=== PATIENT | female | born 1965 | race Caucasian/White ===

== ENCOUNTER 2016-10-03 08:55 | Inpatient (IN) | payer BC, OTHER ==
[2016-10-03 11:38] VITALS: BMI 17.9
--- NOTE | 2016-10-03 12:33 | HP ---
CIWA Score - CIWA Score Nausea/Vomitin Muscle Tremors: 5 Anxiety: 4-Mod. Anxious/Guarded Agitation: 1-Slight > Activity Paroxysmal Sweats: 3 Orientation: 0-Oriented Tacttile Disturbances: 2-Mild Itch/Numbness/Burn Auditory Disturbances: 1-Very Mild Visual Disturbances: 0-None Headache: 2-Mild CIWA-Ar Total Score: 23 Admission ROS BHS - HPI Chief Complaint: "I'm tired of going through these periods of feeling sick and tired and miserable." Pt. is here to Detox from Alcohol. Allergies/Adverse Reactions: Allergies Allergy/AdvReac Type Severity Reaction Status Date / Time No Known Allergies Allergy Verified 10/03/16 12:13 History of Present Illness: Pt. is a 50 YO female here to Detox from Alcohol. Pt. has had 1 previous Detox admission at [facility] in past. Pt. has had previous Detox and Rehab admissions at other [facility] and [facility] in the past. Exam Limitations: No Limitations - Ebola screening Have you traveled outside of the country in the last 21 days: No Have you had contact with anyone from an Ebola affected area: No Have you been sick,other than usual withdrawal symptoms: No Do you have a fever: No - Review of Systems Constitutional: Chills, Diaphoresis, Fever, Loss of Appetite, Malaise, Night Sweats, Changes in sleep EENT: reports: Blurred Vision, Tearing, Recent change in vision (Needs Reading glasses.), Dental Problems (Tooth Decay, Chipped tooth.) Respiratory: reports: Cough, SOB with Exertion Cardiac: reports: Other (Blackout - last epsiode approx. 12 months ago, likely due to Withdrawal.) GI: reports: Diarrhea, Nausea, Poor Appetite, Vomiting, Indigestion, Abdominal cramping, Other (Heartburn.) : reports: No Symptoms Reported Musculoskeletal: reports: Back Pain Integumentary: reports: Erythema (Patches noted on bilateral arms, where patient has been scratching due to dry skin.), Pruritus (Dryness on bilateral arms and legs.), Sweating Neuro: reports: Headache, Numbness (Bilateral feet.), Seizure (2 in past, last one approx. 1 year ago, likely due to withdrawal.), Tremors Endocrine: reports: No Symptoms Reported Hematology: reports: Easy Bruising Psychiatric: reports: Judgement Intact, Mood/Affect Appropiate, Orientated x3, Anxious, Depressed (And Anxiety, Takes medication.) Other Systems: Reviewed and Negative Patient History - Patient Medical History Hx Anemia: No Hx Asthma: No Hx Chronic Obstructive Pulmonary Disease (COPD): No Hx Cancer: No Hx Cardiac Disorders: Yes (Mitral valve prolapse.) Hx Congestive Heart Failure: No Hx Hypertension: No Hx Hypercholesterolemia: No Hx Pacemaker: No HX Cerebrovascular Accident: No Hx Seizures: Yes (etoh related last 1 yr ago.) Hx Dementia: No Hx Diabetes: No Hx Gastrointestinal Disorders: Yes (Heartburn.) Hx Liver Disease: Yes (Fatty Liver, diagnosed several years ago.) Hx Genitourinary Disorders: No Hx Sexually Transmitted Disorders: No Hx Renal Disease (ESRD): No Hx Thyroid Disease: No Hx Human Immunodeficiency Virus (HIV): No (last 06/30: NEGATIVE.) Hx Hepatitis C: No Hx Depression: Yes (History of meds., last taken approx. 1 month ago, due to drinking.) Hx Suicide Attempt: No (PATIENT DENIES CURRENT SI / HI.) Hx Bipolar Disorder: No Hx Schizophrenia: No Other Medical History: ANOREXIA / BULEMIA PRIMARILY DURING CHILDHOOD, OCCASIONAL RELAPSES. - Patient Surgical History Past Surgical History: No Hx Neurologic Surgery: No Hx Cataract Extraction: No Hx Cardiac Surgery: No Hx Lung Surgery: No Hx Breast Surgery: No Hx Breast Biopsy: No Hx Abdominal Surgery: No Hx Appendectomy: No Hx Cholecystectomy: No Hx Genitourinary Surgery: No Hx Section: No Hx Orthopedic Surgery: No Anesthesia Reaction: No - PPD History Previous Implant?: Yes Documented Results: Negative w/o proof Implanted On Prior [facility] Admission?: Yes Date: 08/02/14 PPD to be Administered?: Yes - Reproductive History Patient is a Female of Child Bearing Age (11 -55 yrs old): Yes LMP comment: Stopped approx. 3 years ago. Patient : No - Smoking Cessation Smoking history: Never smoked Hx Chewing Tobacco Use: No Initiated information on smoking cessation: No - Substance & Tx. History Hx Alcohol Use: Yes Hx Substance Use: Yes Substance Use Type: Alcohol Hx Substance Use Treatment: Yes (Previous detox and Rehab admissions, 1 at [facility] ; also at other locations.) - Substances Abused Alcohol Route: Oral Frequency: Daily Amount used: 4 - 22 oz beers or a bottle of wine Age of first use: 17 Date of Last Use: 10/01/16 Family Disease History - Family Disease History Family Disease History: CA: Father (Alive.), Mother (Alive, Thyroid Disorder.), Other: Grandparent (alcohol,), Mother Admission Physical Exam [facility] - Vital Signs Vital Signs: Vital Signs - 24 hr 10/03/16 10/03/16 11:20 11:35 Temperature 97.4 F L 99.0 F Pulse Rate 59 L 85 Respiratory 17 18 Rate Blood Pressure 125/73 120/78 - Physical General Appearance: Yes: Appropriately Dressed, Mild Distress, Moderate Distress , Thin, Tremorous, Sweating, Anxious HEENTM: Yes: Hearing grossly Normal, Normocephalic, Normal Voice, JUDI, Pharynx Normal Respiratory: Yes: Chest Non-Tender, Lungs Clear, No Respiratory Distress, No Accessory Muscle Use Neck: Yes: No masses,lesions,Nodules, Supple, Trachea in good position Breast: Yes: Breast Exam Deferred Cardiology: Yes: Regular Rhythm, Regular Rate, S1, S2 Abdominal: Yes: Normal Bowel Sounds, Non Tender, Flat, Soft Genitourinary: Yes: Within Normal Limits Back: Yes: Decreased Range of Motion Musculoskeletal: Yes: Gait Steady, Back pain Extremities: Yes: Tremors Neurological: Yes: Fully Oriented, Alert, Normal Mood/Affect, Normal Response Integumentary: Yes: Normal Color, Dry, Warm, Erythema (Small spots noted on bilateral arms; patient reports that she has been scratching in these areas due to dry skin.) Lymphatic: Yes: Within Normal Limits - Diagnostic (1) Alcohol dependence with uncomplicated withdrawal Current Visit: Yes Status: Acute (2) History of anorexia nervosa Current Visit: Yes Status: Chronic (3) History of bulimia nervosa Current Visit: Yes Status: Chronic (4) History of anxiety Current Visit: Yes Status: Chronic (5) History of depression Current Visit: Yes Status: Chronic (6) Heartburn Current Visit: Yes Status: Chronic (7) Fatty liver Current Visit: Yes Status: Chronic (8) History of mitral valve prolapse Current Visit: Yes Status: Chronic (9) History of seizures Current Visit: Yes Status: Chronic Comment: Due to Alcohol Withdrawal. Cleared for Admission [facility] - Detox or Rehab [facility] Level of Care: Medically Managed Detox Regimen/Protocol: Librium S Breath Alcohol Content Breath Alcohol Content: 0 Urine Pregancy Test - Result Urine Test Results: Negative- NO Line Present Urine Drug Screen - Results Drug Screen Negative: No Urine Drug Screen Results: BZO-Benzodiazepines
[2016-10-03] MEDS ORDERED: chlordiazePOXIDE HCL 25 MG CAPSULE PO PRN (13:11)
[2016-10-03] MEDS ORDERED: P-EPHED 60MG/TRIPROLIDI 2.5MG TABLET PO PRN (13:11)
[2016-10-03] MEDS ORDERED: IBUPROFEN 400 MG TABLET (FP) PO PRN (13:11)
[2016-10-03] MEDS ORDERED: MAG HYDROX/AL HYDROX/SIMETH 30 ML UNIT-DOSE CUP PO PRN (13:11)
[2016-10-03] MEDS ORDERED: ACETAMINOPHEN 325 MG TABLET (FP) PO PRN (13:11)
[2016-10-03] MEDS ORDERED: guaiFENesin/D-METHORPHAN HB 10 ML UNIT-DOSE CUPS PO PRN (13:11)
[2016-10-03] MEDS ORDERED: MAGNESIUM HYDROX 2400MG/30ML ORAL SUSPENSION 30 ML CUP PO PRN (13:11)
[2016-10-03] MEDS ORDERED: MAGNESIUM CITRATE 300 ML BOTTLE PO PRN (13:11)
[2016-10-03] MEDS ORDERED: MENTHOL/PHENOL 1 EACH UD MM PRN (13:11)
[2016-10-03] MEDS ORDERED: diphenhydrAMINE HCL 50 MG CAPSULE PO PRN (13:11)
[2016-10-03] MEDS ORDERED: ONDANSETRON *ODT* 4 MG TABLET SL PRN (13:14)
[2016-10-03] MEDS ORDERED: diphenhydrAMINE HCL 25 MG CAPSULE (FP) PO PRN (13:21)
[2016-10-03] MEDS ORDERED: chlordiazePOXIDE HCL 25 MG CAPSULE PO ONE (13:54)
[2016-10-03] MEDS: AMMONIUM LACTATE 12% LOTION 225 GM BOTTLE TP SCH ×2 (16:02→22:36)
[2016-10-03 17:22] LABS: MCH 23.6 pg (25.7-33.7); MCHC 30.6 g/dl (32.0-36.0); MEAN CELL VOLUME 77.2 fl (80-96); RDW 22.9 % (11.6-15.6); WHITE BLOOD COUNT 3.3 K/mm3 (4.0-10.0)
--- NOTE | 2016-10-03 17:28 | CONSULT ---
[facility] Psychiatric Consult - Data Date of interview: 10/03/16 Admission source: [facility] Identifying data: Readmission to [facility] for this 50 y/o female seeking detox treatment on for alcohol dependence.Patient is single without children,domiciled,unemployed and supported on Disability benefits. Substance Abuse History: Patient admits to abusing alcohol since age 18 ( consumes one bottle of wine + 4 X 22 oz of beer daily).Never smoked.Last ETOH use : 10/02/16. Medical History: GERD and a history of alcohol-related seizures. Psychiatric History: Patient admits to a few psychiatric hospitalizations in the past ([facility]).Diagnosed with MDD.Treated with ECT at [facility] 10 years ago.Co-morbidities : anorexia,bulimia nervosa (no recent relapses).Managed by psychiatrist,Dr Narvaez.Ms Devlin gets OPD services at the [facility] mental health clinic.Maintained on a regimen of zoloft 100 mg/day + remeron 15 mg/hs.Verified by review of recent pharmacy claims.Patient endorses adequate adherence to OPD care.She denies history of suicide attempts. Physical/Sexual Abuse/Trauma History: Patient denies. Additional Comment: Urine Drug Screen Results: BZO-Benzodiazepines as per [facility] report.Noted. Mental Status Exam - Mental Status Exam Alert and Oriented to: Time, Place, Person Cognitive Function: Good Patient Appearance: Well Groomed (short stature,frail habitus,thin) Mood: Nervous, Withdrawn, Apprehensive Affect: Constricted Patient Behavior: Appropriate, Cooperative Speech Pattern: Clear, Appropriate Voice Loudness: Normal Thought Process: Goal Oriented Thought Disorder: Not Present Hallucinations: Denies Suicidal Ideation: Denies Insight/Judgement: Fair Sleep: Poorly, Difficulty falling asleep Appetite: Poor, Weight loss Muscle strength/Tone: Normal Gait/Station: Normal Psychiatric Findings - Problem List (Francisco 1, 2,3) (1) Alcohol dependence with uncomplicated withdrawal Current Visit: Yes Status: Acute (2) Depressive disorder Current Visit: Yes Status: Chronic (3) History of anorexia nervosa Current Visit: Yes Status: Chronic (4) History of bulimia nervosa Current Visit: Yes Status: Chronic (5) History of mitral valve prolapse Current Visit: Yes Status: Chronic (6) History of seizures Current Visit: Yes Status: Chronic Comment: Due to Alcohol Withdrawal. (7) Weight loss Current Visit: Yes Status: Chronic (8) Gastroesophageal reflux disease Current Visit: Yes Status: Chronic (9) Insomnia Current Visit: Yes Status: Acute - Initial Treatment Plan Initial Treatment Plan: Psychoeducation.Detoxification in progress.S report is appreciated.Medications : zoloft 100 mg po daily + remeron 15 mg po hs.Side effects/benegfits discussed with the patient.She is in agreement with this careplan.Observation.NO scripts at discharge : refills available since 09/26/16 at [facility] # [id number] (provider Dr Rajeev Obregon).
[2016-10-03 17:38] LABS: URINE APPEARANCE CLEAR; URINE BILIRUBIN NEGATIVE (NEGATIVE); URINE BLOOD NEGATIVE (NEGATIVE); URINE COLOR LTYELLOW; URINE GLUCOSE (UA) NEGATIVE (NEGATIVE); URINE KETONE NEGATIVE (NEGATIVE); URINE LEUK ESTERASE NEGATIVE (NEGATIVE); URINE NITRITE NEGATIVE (NEGATIVE); URINE PROTEIN NEGATIVE (NEGATIVE); URINE UROBILINOGEN NEGATIVE mg/dL (0.2-1.0)
[2016-10-03 17:51] LABS: ALBUMIN 4.2 g/dl (3.4-5.0); ANION GAP 14 (8-16); CALCIUM 9.4 mg/dL (8.5-10.1); CO2 26 mmol/L (21-32); GLUCOSE,RANDOM 95 mg/dL (74-106); SGOT/AST 74 U/L (15-37); SGPT/ALT 39 U/L (12-78)
[2016-10-03 17:55] LABS: ALK PHOS 216 U/L (45-117); BILIRUBIN,TOTAL 1.9 mg/dL (0.2-1.0); CREATININE 0.5 mg/dL (0.55-1.02); TOT PROT 8.3 g/dl (6.4-8.2)
[2016-10-03] MEDS: chlordiazePOXIDE HCL 25 MG CAPSULE PO SCH ×2 (17:56→22:36)
[2016-10-03 18:19] LABS: MEAN PLT VOLUME 8.6 fl (7.5-11.1); PLATELET COUNT 150 K/MM3 (134-434)
[2016-10-03 18:22] LABS: ANISOCYTOSIS 3+; OVALOCYTES 1+; PLATELET ESTIMATE ADEQUATE (NORMAL); POIKILOCYTOSIS 1+; POLYCHROMASIA 1+
[2016-10-03] MEDS ORDERED: POTASSIUM CHLORIDE TABS 20 MEQ TABLET.ER (FP) PO ONE (21:09)
[2016-10-03] MEDS: LOPERAMIDE HCL 2 MG CAPSULE PO PRN (21:11)
--- NOTE | 2016-10-03 21:14 | PN ---
[facility] Progress Note Note: Laboratory Last Values WBC 3.3 K/mm3 (4.0-10.0) L 10/03/16 14:00 RBC 3.76 M/mm3 (3.60-5.2) 10/03/16 14:00 Hgb 8.9 GM/dL (10.7-15.3) L D 10/03/16 14:00 Hct 29.0 % (32.4-45.2) L 10/03/16 14:00 MCV 77.2 fl (80-96) L 10/03/16 14:00 MCH 23.6 pg (25.7-33.7) L 10/03/16 14:00 MCHC 30.6 g/dl (32.0-36.0) L 10/03/16 14:00 RDW 22.9 % (11.6-15.6) H D 10/03/16 14:00 Plt Count 150 K/MM3 (134-434) 10/03/16 14:00 MPV 8.6 fl (7.5-11.1) 10/03/16 14:00 Platelet Estimate Adequate (NORMAL) 10/03/16 14:00 Platelet Comment Few giant plts 10/03/16 14:00 Polychromasia 1+ 10/03/16 14:00 Poikilocytosis 1+ 10/03/16 14:00 Anisocytosis 3+ 10/03/16 14:00 Macrocytosis 1+ 10/03/16 14:00 Ovalocytes 1+ 10/03/16 14:00 Morphology Comment Slide scanned 10/03/16 14:00 Sodium 130 mmol/L (136-145) L 10/03/16 14:00 Potassium 3.3 mmol/L (3.5-5.1) L 10/03/16 14:00 Chloride 90 mmol/L (98-107) L 10/03/16 14:00 Carbon Dioxide 26 mmol/L (21-32) 10/03/16 14:00 Anion Gap 14 (8-16) 10/03/16 14:00 BUN 2 mg/dL (7-18) L* D 10/03/16 14:00 Creatinine 0.5 mg/dL (0.55-1.02) L 10/03/16 14:00 Creat Clearance w eGFR > 60 (>60) 10/03/16 14:00 Random Glucose 95 mg/dL (74-106) 10/03/16 14:00 Calcium 9.4 mg/dL (8.5-10.1) 10/03/16 14:00 Total Bilirubin 1.9 mg/dL (0.2-1.0) H D 10/03/16 14:00 AST 74 U/L (15-37) H 10/03/16 14:00 ALT 39 U/L (12-78) D 10/03/16 14:00 Alkaline Phosphatase 216 U/L (45-117) H D 10/03/16 14:00 Total Protein 8.3 g/dl (6.4-8.2) H D 10/03/16 14:00 Albumin 4.2 g/dl (3.4-5.0) 10/03/16 14:00 Urine Color Ltyellow 10/03/16 15:00 Urine Appearance Clear 10/03/16 15:00 Urine pH 8.0 (5.0-8.0) D 10/03/16 15:00 Urine Protein Negative (NEGATIVE) 10/03/16 15:00 Urine Glucose (UA) Negative (NEGATIVE) 10/03/16 15:00 Urine Ketones Negative (NEGATIVE) 10/03/16 15:00 Urine Blood Negative (NEGATIVE) 10/03/16 15:00 Urine Nitrite Negative (NEGATIVE) 10/03/16 15:00 Urine Bilirubin Negative (NEGATIVE) 10/03/16 15:00 Urine Urobilinogen Negative mg/dL (0.2-1.0) 10/03/16 15:00 Ur Leukocyte Esterase Negative (NEGATIVE) 10/03/16 15:00 RPR Titer Nonreactive (NONREACTIVE) 10/03/16 14:00 to give k dur 20 meq po now then daily ferrous sulfate 325 mgs po tid repeat cbc,cmp in AM continue detox
[2016-10-03] MEDS: MIRTAZAPINE 15 MG TABLET (FP) PO SCH (22:35)
[2016-10-03] MEDS: THIAMINE HCL 100 MG TABLET (FP) PO SCH (22:35)
[2016-10-04] MEDS: chlordiazePOXIDE HCL 25 MG CAPSULE PO SCH ×4 (05:35→22:39)
[2016-10-04] MEDS: FERROUS SO4 325 MG TABLET (FP) PO SCH ×3 (07:53→17:49)
[2016-10-04] MEDS: SERTRALINE HCL 50 MG TABLET (FP) PO SCH (10:32)
[2016-10-04] MEDS: POTASSIUM CHLORIDE TABS 20 MEQ TABLET.ER (FP) PO SCH (10:32)
[2016-10-04] MEDS: PRENATAL VITAMINS W/ FOLIC ACID TABLET (FP) PO SCH (10:32)
[2016-10-04] MEDS: PANTOPRAZOLE 40 MG TABLET (FP) PO SCH (10:32)
[2016-10-04] MEDS: AMMONIUM LACTATE 12% LOTION 225 GM BOTTLE TP SCH ×2 (10:32→22:39)
--- NOTE | 2016-10-04 12:34 | PN ---
[facility] CIWA - CIWA Score Nausea/Vomitin Muscle Tremors: 3 Anxiety: 3 Agitation: 3 Paroxysmal Sweats: 1-Minimal Palms Moist Orientation: 0-Oriented Tacttile Disturbances: 1-Very Mild Itch/Numbness Auditory Disturbances: 1-Very Mild Visual Disturbances: 1-Very Mild Sensitivity Headache: 2-Mild CIWA-Ar Total Score: 18 S Progress Note (SOAP) Subjective: ALERT,IRRITABLE,ANXIOUS,INTERRUPTED SLEEP,TREOR Objective: 10/04/16 12:32 Vital Signs Temperature 98.2 F 10/04/16 10:00 Pulse Rate 100 H 10/04/16 10:00 Respiratory Rate 20 10/04/16 10:00 Blood Pressure 112/88 10/04/16 10:00 O2 Sat by Pulse Oximetry (%) EKG NSR,PROLONG QT NO CHEST PAIN,NO SOB,NO DIZZINESS Laboratory Last Values WBC 3.3 K/mm3 (4.0-10.0) L 10/03/16 14:00 RBC 3.76 M/mm3 (3.60-5.2) 10/03/16 14:00 Hgb 8.9 GM/dL (10.7-15.3) L D 10/03/16 14:00 Hct 29.0 % (32.4-45.2) L 10/03/16 14:00 MCV 77.2 fl (80-96) L 10/03/16 14:00 MCH 23.6 pg (25.7-33.7) L 10/03/16 14:00 MCHC 30.6 g/dl (32.0-36.0) L 10/03/16 14:00 RDW 22.9 % (11.6-15.6) H D 10/03/16 14:00 Plt Count 150 K/MM3 (134-434) 10/03/16 14:00 MPV 8.6 fl (7.5-11.1) 10/03/16 14:00 Platelet Estimate Adequate (NORMAL) 10/03/16 14:00 Platelet Comment Few giant plts 10/03/16 14:00 Polychromasia 1+ 10/03/16 14:00 Poikilocytosis 1+ 10/03/16 14:00 Anisocytosis 3+ 10/03/16 14:00 Macrocytosis 1+ 10/03/16 14:00 Ovalocytes 1+ 10/03/16 14:00 Morphology Comment Slide scanned 10/03/16 14:00 Sodium 130 mmol/L (136-145) L 10/03/16 14:00 Potassium 3.3 mmol/L (3.5-5.1) L 10/03/16 14:00 Chloride 90 mmol/L (98-107) L 10/03/16 14:00 Carbon Dioxide 26 mmol/L (21-32) 10/03/16 14:00 Anion Gap 14 (8-16) 10/03/16 14:00 BUN 2 mg/dL (7-18) L* D 10/03/16 14:00 Creatinine 0.5 mg/dL (0.55-1.02) L 10/03/16 14:00 Creat Clearance w eGFR > 60 (>60) 10/03/16 14:00 Random Glucose 95 mg/dL (74-106) 10/03/16 14:00 Calcium 9.4 mg/dL (8.5-10.1) 10/03/16 14:00 Total Bilirubin 1.9 mg/dL (0.2-1.0) H D 10/03/16 14:00 AST 74 U/L (15-37) H 10/03/16 14:00 ALT 39 U/L (12-78) D 10/03/16 14:00 Alkaline Phosphatase 216 U/L (45-117) H D 10/03/16 14:00 Total Protein 8.3 g/dl (6.4-8.2) H D 10/03/16 14:00 Albumin 4.2 g/dl (3.4-5.0) 10/03/16 14:00 Urine Color Ltyellow 10/03/16 15:00 Urine Appearance Clear 10/03/16 15:00 Urine pH 8.0 (5.0-8.0) D 10/03/16 15:00 Ur Specific [place] 1.010 (1.005-1.025) 10/03/16 15:00 Urine Protein Negative (NEGATIVE) 10/03/16 15:00 Urine Glucose (UA) Negative (NEGATIVE) 10/03/16 15:00 Urine Ketones Negative (NEGATIVE) 10/03/16 15:00 Urine Blood Negative (NEGATIVE) 10/03/16 15:00 Urine Nitrite Negative (NEGATIVE) 10/03/16 15:00 Urine Bilirubin Negative (NEGATIVE) 10/03/16 15:00 Urine Urobilinogen Negative mg/dL (0.2-1.0) 10/03/16 15:00 Ur Leukocyte Esterase Negative (NEGATIVE) 10/03/16 15:00 RPR Titer Nonreactive (NONREACTIVE) 10/03/16 14:00 Assessment: 10/04/16 12:34 WITHDRAWAL SYMPTOM 10/04/16 12:36 Plan: CONTINUE DETOX,REPEAT CBC,CMP IN AM
[2016-10-04] MEDS: hydrOXYzine PAMOATE 50 MG CAPSULE (FP) PO PRN (15:50)
--- NOTE | 2016-10-04 16:38 | EKG ---
Test Reason : Blood Pressure : / mmHG Vent. Rate : 083 BPM Atrial Rate : 083 BPM P-R Int : 116 ms QRS Dur : 072 ms QT Int : 410 ms P-R-T Axes : 016 054 063 degrees QTc Int : 481 ms NORMAL SINUS RHYTHM PROLONGED QT ABNORMAL ECG NO PREVIOUS ECGS AVAILABLE Confirmed by JIAN HOWARD, DINA ([id number]) on 10/04/2016 4:38:15 PM Referred By: Anuj Stout Confirmed By:DINA VILLAR MD
[2016-10-04] MEDS: MIRTAZAPINE 15 MG TABLET (FP) PO SCH (22:39)
[2016-10-04] MEDS: THIAMINE HCL 100 MG TABLET (FP) PO SCH (22:39)
[2016-10-05] MEDS: chlordiazePOXIDE HCL 25 MG CAPSULE PO SCH ×2 (06:07→10:59)
[2016-10-05] MEDS: FERROUS SO4 325 MG TABLET (FP) PO SCH ×3 (07:57→17:32)
[2016-10-05] MEDS: PRENATAL VITAMINS W/ FOLIC ACID TABLET (FP) PO SCH (10:59)
[2016-10-05] MEDS: PANTOPRAZOLE 40 MG TABLET (FP) PO SCH (10:59)
[2016-10-05] MEDS: SERTRALINE HCL 50 MG TABLET (FP) PO SCH (10:59)
[2016-10-05] MEDS: POTASSIUM CHLORIDE TABS 20 MEQ TABLET.ER (FP) PO SCH (11:00)
[2016-10-05] MEDS: AMMONIUM LACTATE 12% LOTION 225 GM BOTTLE TP SCH ×2 (11:00→22:33)
--- NOTE | 2016-10-05 12:03 | PN ---
[facility] CIWA - CIWA Score Nausea/Vomitin Muscle Tremors: 3 Anxiety: 3 Agitation: 2 Paroxysmal Sweats: 3 Orientation: 0-Oriented Tacttile Disturbances: 2-Mild Itch/Numbness/Burn Auditory Disturbances: 0-None Visual Disturbances: 0-None Headache: 0-None Present CIWA-Ar Total Score: 16 [facility] Progress Note (SOAP) Subjective: shakes, sweats, neuropathy of feet Objective: 10/05/16 12:02 Vital Signs Temperature 97.5 F L 10/05/16 10:00 Pulse Rate 118 H 10/05/16 10:00 Respiratory Rate 18 10/05/16 10:00 Blood Pressure 124/85 10/05/16 10:00 O2 Sat by Pulse Oximetry (%) Laboratory Tests 10/03/16 10/03/16 10/03/16 14:00 14:00 14:00 WBC 3.3 L RBC 3.76 Hgb 8.9 L D Hct 29.0 L MCV 77.2 L MCH 23.6 L MCHC 30.6 L RDW 22.9 H D Plt Count 150 MPV 8.6 Platelet Estimate Adequate Platelet Comment Few giant plts Polychromasia 1+ Poikilocytosis 1+ Anisocytosis 3+ Macrocytosis 1+ Ovalocytes 1+ Morphology Comment Slide scanned Sodium 130 L Potassium 3.3 L Chloride 90 L Carbon Dioxide 26 Anion Gap 14 BUN 2 L* D Creatinine 0.5 L Creat Clearance w eGFR > 60 Random Glucose 95 Calcium 9.4 Total Bilirubin 1.9 H D AST 74 H ALT 39 D Alkaline Phosphatase 216 H D Total Protein 8.3 H D Albumin 4.2 Urine Color Urine Appearance Urine pH Ur Specific [place] Urine Protein Urine Glucose (UA) Urine Ketones Urine Blood Urine Nitrite Urine Bilirubin Urine Urobilinogen Ur Leukocyte Esterase RPR Titer Nonreactive 10/03/16 15:00 WBC RBC Hgb Hct MCV MCH MCHC RDW Plt Count MPV Platelet Estimate Platelet Comment Polychromasia Poikilocytosis Anisocytosis Macrocytosis Ovalocytes Morphology Comment Sodium Potassium Chloride Carbon Dioxide Anion Gap BUN Creatinine Creat Clearance w eGFR Random Glucose Calcium Total Bilirubin AST ALT Alkaline Phosphatase Total Protein Albumin Urine Color Ltyellow Urine Appearance Clear Urine pH 8.0 D Ur Specific [place] 1.010 Urine Protein Negative Urine Glucose (UA) Negative Urine Ketones Negative Urine Blood Negative Urine Nitrite Negative Urine Bilirubin Negative Urine Urobilinogen Negative Ur Leukocyte Esterase Negative RPR Titer pt aox3 in nad ambulating Assessment: 10/05/16 12:02 withdrawal sx's neuropathy anemia Plan: cont. detox increase fluids neurontin 100mg tid
[2016-10-05] MEDS: GABAPENTIN 100 MG CAPSULE (FP) PO SCH ×2 (14:31→22:32)
[2016-10-05] MEDS: chlordiazePOXIDE 5 MG CAPSULE PO SCH ×2 (17:32→22:32)
[2016-10-05] MEDS: MIRTAZAPINE 15 MG TABLET (FP) PO SCH (22:32)
[2016-10-05] MEDS: THIAMINE HCL 100 MG TABLET (FP) PO SCH (22:32)
[2016-10-05] MEDS: LOPERAMIDE HCL 2 MG CAPSULE PO PRN (23:14)
[2016-10-06] MEDS: hydrOXYzine PAMOATE 50 MG CAPSULE (FP) PO PRN (02:22)
[2016-10-06] MEDS: chlordiazePOXIDE 5 MG CAPSULE PO SCH ×2 (05:55→10:54)
[2016-10-06] MEDS: GABAPENTIN 100 MG CAPSULE (FP) PO SCH ×3 (05:56→22:42)
[2016-10-06] MEDS: LOPERAMIDE HCL 2 MG CAPSULE PO PRN (05:56)
[2016-10-06] MEDS: FERROUS SO4 325 MG TABLET (FP) PO SCH ×3 (08:14→17:57)
[2016-10-06] MEDS: POTASSIUM CHLORIDE TABS 20 MEQ TABLET.ER (FP) PO SCH (10:53)
[2016-10-06] MEDS: PANTOPRAZOLE 40 MG TABLET (FP) PO SCH (10:53)
[2016-10-06] MEDS: PRENATAL VITAMINS W/ FOLIC ACID TABLET (FP) PO SCH (10:53)
[2016-10-06] MEDS: SERTRALINE HCL 50 MG TABLET (FP) PO SCH (10:53)
[2016-10-06] MEDS: AMMONIUM LACTATE 12% LOTION 225 GM BOTTLE TP SCH ×2 (10:54→22:43)
--- NOTE | 2016-10-06 15:41 | PN ---
S Progress Note (SOAP) Subjective: alert,irritable,anxious,interrupted sleep, Objective: 10/06/16 15:40 10/06/16 15:40 Vital Signs Temperature 97.2 F L 10/06/16 14:40 Pulse Rate 109 H 10/06/16 14:40 Respiratory Rate 16 10/06/16 14:40 Blood Pressure 119/83 10/06/16 14:40 O2 Sat by Pulse Oximetry (%) Assessment: 10/06/16 15:40 withdrawal symptom Plan: continue detox,discharge in am
[2016-10-06] MEDS ORDERED: chlordiazePOXIDE 5 MG CAPSULE ONE ×2 (17:18→21:56)
[2016-10-06] MEDS: chlordiazePOXIDE HCL 10 MG CAPSULE PO SCH ×2 (17:58→22:43)
[2016-10-06] MEDS: THIAMINE HCL 100 MG TABLET (FP) PO SCH (22:42)
[2016-10-06] MEDS: MIRTAZAPINE 15 MG TABLET (FP) PO SCH (22:42)
[2016-10-07] MEDS ORDERED: chlordiazePOXIDE 5 MG CAPSULE ONE ×2 (04:45→09:15)
[2016-10-07] MEDS: chlordiazePOXIDE HCL 10 MG CAPSULE PO SCH (06:06)
[2016-10-07] MEDS: GABAPENTIN 100 MG CAPSULE (FP) PO SCH (06:06)
[2016-10-07 06:57] VITALS: BP 138/78; PULSE 112; TEMP 99.1
[2016-10-07] MEDS: FERROUS SO4 325 MG TABLET (FP) PO SCH (07:35)
--- NOTE | 2016-10-07 09:22 | DS ---
[facility] Detox Discharge Summary Admission Date: 10/03/16 - History Additional Comments: FOLLOW UP WITH AFTER CARE PROGRAM ARRANGEMENT Pertinent Past History: SEIZURE ANXIETY AND DEPRESION WEIGHT LOSS HISTORY OF ANOREXIA NERVOSA - Physical Exam Results Vital Signs: Vital Signs Temperature 99.1 F 10/07/16 06:57 Pulse Rate 112 H 10/07/16 06:57 Respiratory Rate 20 10/07/16 06:57 Blood Pressure 138/78 10/07/16 06:57 O2 Sat by Pulse Oximetry (%) Pertinent Admission Physical Exam Findings: WITHDRAWAL SYMPTOM - Treatment Hospital Course: Detox Protocol Followed, Detoxed Safely, Responded well, Discharged Condition Good Patient has Accepted a Rehab Referral to: [facility] - Medication Discharge Medications: Ambulatory Orders Mirtazapine [Remeron -] 15 mg PO HS 10/03/16 Naltrexone HCl [Revia] 50 mg PO DAILY 10/03/16 Sertraline HCl [Zoloft -] 100 mg PO DAILY 10/03/16 Trazodone HCl [Desyrel -] 100 mg PO HS 10/03/16 - AMA Did Patient Leave Against Medical Advice: No
== END 2016-10-07 09:50 | disposition home or self-care (01) | DRG 897 ==
LOC: YASAS 08:55 → Y6N 13:32
PROVIDERS: ADMIT Internal Medicine Addiction Medicine; ATTEND Internal Medicine Addiction Medicine
PROC: HZ2ZZZZ Detoxification Services for Substance Abuse Treatment (ICD-10-PCS; principal; 2016-10-07)
PROC: HZ2ZZZZ Detoxification Services for Substance Abuse Treatment (ICD-10-PCS; 2016-10-07)
DX: F10.230 Alcohol dependence with withdrawal, uncomplicated (principal); F50.00 Anorexia nervosa, unspecified; F50.2 Bulimia nervosa; F32.9 Major depressive disorder, single episode, unspecified; G47.00 Insomnia, unspecified; I34.1 Nonrheumatic mitral (valve) prolapse; K21.9 Gastro-esophageal reflux disease without esophagitis; Z86.69 Personal history of other diseases of the nervous system and sense organs; Z86.59 Personal history of other mental and behavioral disorders; K76.0 Fatty (change of) liver, not elsewhere classified
CPT/HCPCS: 36415; 80053; 81003; 85027; 86593; 93005; 93010